=== PATIENT | male | born 1985 | race Caucasian/White ===

== ENCOUNTER 2020-07-12 15:41 | Emergency (ER) | payer OTHER ==
[~2020-07-12] VITALS: Ht 162.6 cm; Wt 59.0 kg
--- NOTE | 2020-07-12 16:12 | Emergency Room Report ---
History of Present Illness General Chief Complaint: Substance Abuse Source: Patient Present Illness HPI Patient brought by EMS. He has been using methamphetamine. Is paranoid. He is complaining about chest pain. He also had a shock like sensation earlier today. He states he has been eating but not very well. Has not been keeping up with fluids either. last night he was feeling hot and cold but denies documented fever. The patient is status post rehab. He is embarrassed that he has relapsed. Patient denies suicidal or homicidal ideation. Patient denies exposure to Covid positive contacts. No sore throat, chest pain, palpitations, nausea, vomiting, diarrhea, dysuria, abdominal pain, shortness of breath, joint pain, rashes, visual changes, dizziness, headache. Allergies: Coded Allergies: No Known Allergies (Unverified , 07/12/20) COVID-19 Screening Contact w/high risk pt: No Experienced COVID-19 symptoms?: No COVID-19 Testing performed BROACH SETTER: No Patient History Past Medical History: see triage record Social History: Reports: smoking, drug use Social [facility] Nursing Documentation: PMH: Agreed; PSxH: Agreed Review of Systems All Other Systems: negative except mentioned in HPI Physical Exam Vital Signs Date Time Temp Pulse Resp B/P (MAP) Pulse Ox O2 Delivery O2 Flow Rate FiO2 07/12/20 15:45 98.8 96 18 134/98 (110) 98 Room Air Sp02 EP Interpretation: reviewed, normal General Appearance: well appearing, no apparent distress, GCS 15, other - Tearful Head: normocephalic Eyes: bilateral eye normal inspection, bilateral eye PERRL, bilateral eye EOMI ENT: moist mucus membranes - Slightly dry Neck: supple Respiratory: lungs clear, normal breath sounds Cardiovascular #1: tachycardia Cardiovascular #2: 2+ radial (R) Gastrointestinal: normal inspection, normal bowel sounds, non tender, no mass, non-distended Musculoskeletal: back normal, normal range of motion, gait/station normal Neurologic: alert, motor strength/tone normal, medical imaging technologist III-XII nml as tested, DTRs symmetric, oriented x3, sensory intact Psychiatric: no suicidal/homicidal ideation, depressed affect - Tearful Skin: no rash, warm/dry Medical Decision Making Diagnostic Impression: Primary Impression: Substance abuse ER Course Patient presents with methamphetamine abuse and history of chest pain shocking feeling. Differential includes myocarditis, acute myocardial infarction, pericarditis, pneumothorax amongst others. Based on exam pneumothorax is less likely. In addition the patient needs to be evaluated for renal function, CPK and for rhabdomyolysis and electrolyte assessment. Patient placed on a traffic monitor specialist. Patient treated with IV hydration. Discussed with patient the need for returning to [employer]. EKG sinus tachycardia, right axis deviation nonspecific ST-T wave changes. Labs normal. Urine tox screen not ordered because patient reports use of methamphet amine. Patient remarkably improved after IV hydration and observation. Discussed findings and treatment plan with patient. Patient stable for outpatient observation and treatment. Laboratory Tests Test 07/12/20 16:14 White Blood Count 6.2 K/UL (4.8-10.8) Red Blood Count 5.59 M/UL (4.70-6.10) Hemoglobin 17.0 G/DL (14.2-18.0) Hematocrit 47.6 % (42.0-52.0) Mean Corpuscular Volume 85 FL (80-99) Mean Corpuscular Hemoglobin 30.4 PG (27.0-31.0) Mean Corpuscular Hemoglobin Concent 35.7 G/DL (32.0-36.0) Red Cell Distribution Width 12.7 % (11.6-14.8) Platelet Count 316 K/UL (150-450) Mean Platelet Volume 5.9 FL (6.5-10.1) L Neutrophils (%) (Auto) 53.8 % (45.0-75.0) Lymphocytes (%) (Auto) 31.7 % (20.0-45.0) Monocytes (%) (Auto) 12.4 % (1.0-10.0) H Eosinophils (%) (Auto) 1.1 % (0.0-3.0) Basophils (%) (Auto) 1.0 % (0.0-2.0) Sodium Level 140 MMOL/L (136-145) Potassium Level 3.8 MMOL/L (3.5-5.1) Chloride Level 103 MMOL/L (98-107) Carbon Dioxide Level 28 MMOL/L (21-32) Anion Gap 9 mmol/L (5-15) Blood Urea Nitrogen 10 mg/dL (7-18) Creatinine 1.0 MG/DL (0.55-1.30) Estimated Glomerular Filtration Rate > 60 mL/min (>60) Glucose Level 71 MG/DL (74-106) L Calcium Level 9.5 MG/DL (8.5-10.1) Total Bilirubin 1.3 MG/DL (0.2-1.0) H Direct Bilirubin 0.2 MG/DL (0.0-0.3) Aspartate Amino Transferase (AST) 17 U/L (15-37) Alanine Aminotransferase (ALT) 20 U/L (12-78) Alkaline Phosphatase 84 U/L (46-116) Total Creatine Kinase 105 U/L (26-308) Total Protein 7.0 G/DL (6.4-8.2) Albumin 4.0 G/DL (3.4-5.0) Globulin 3.0 g/dL Albumin/Globulin Ratio 1.3 (1.0-2.7) Salicylates Level < 0.2 ug/mL (2.8-20) L Acetaminophen Level < 2 MCG/ML (10-30) L Serum Alcohol < 3 mg/dL EKG Diagnostic Results Rate: tachycardiac Rhythm: NSR ST Segments: no acute changes - Right axis nonspecific ST-T wave changes Rhythm Strip Diag. Results EP Interpretation: yes Rhythm: no PVC's, no ectopy, other - 112 Last Vital Signs Date Time Temp Pulse Resp B/P (MAP) Pulse Ox O2 Delivery O2 Flow Rate FiO2 07/12/20 15:45 98.8 96 18 134/98 (110) 98 Room Air Status: improved Disposition: HOME, SELF-CARE Condition: Improved Referrals: [facility],REFERR[facility] (PCP) Luis Antonio Marquez MD Jul 12, 2020 16:12
[2020-07-12 16:23] VITALS: BP 159/100
[2020-07-12 16:44] LABS: EOSINOPHILS % (AUTO) 1.1 % (0.0-3.0); HEMATOCRIT 47.6 % (42.0-52.0); LYMPHOCYTES % (AUTO) 31.7 % (20.0-45.0); MEAN CORPUSCULAR VOLUME 85 FL (80-99); MONOCYTES % (AUTO) 12.4 % (1.0-10.0); NEUTROPHILS % (AUTO) 53.8 % (45.0-75.0); PLATELET COUNT 316 K/UL (150-450); RED BLOOD COUNT 5.59 M/UL (4.70-6.10); RED CELL DISTRIBUTION WIDTH 12.7 % (11.6-14.8); WHITE BLOOD COUNT 6.2 K/UL (4.8-10.8)
[2020-07-12 16:50] LABS: ANION GAP 9 mmol/L (5-15); BLOOD UREA NITROGEN 10 mg/dL (7-18); CALCIUM 9.5 MG/DL (8.5-10.1); CARBON DIOXIDE 28 MMOL/L (21-32); CHLORIDE 103 MMOL/L (98-107); POTASSIUM 3.8 MMOL/L (3.5-5.1); SODIUM 140 MMOL/L (136-145)
[2020-07-12 17:00] LABS: ALANINE AMINOTRANSFERASE 20 U/L (12-78); ALBUMIN/GLOBULIN RATIO 1.3 (1.0-2.7); ALKALINE PHOSPHATASE 84 U/L (46-116); ASPARTATE AMINO TRANSFERASE 17 U/L (15-37); BILIRUBIN,TOTAL 1.3 MG/DL (0.2-1.0); CREATINE KINASE 105 U/L (26-308)
[2020-07-12 17:06] LABS: BILIRUBIN,DIRECT 0.2 MG/DL (0.0-0.3)
== END 2020-07-12 17:35 | disposition home or self-care (01) ==
LOC: EDBD 15:41 → EMR 15:57
DX: F15.10 Other stimulant abuse, uncomplicated (principal); F17.200 Nicotine dependence, unspecified, uncomplicated
CPT/HCPCS: 36415; 80053; 82248; 82550; 85025; 93005; 96360; G0480; G0481; Z7502; 99284